=== PATIENT | female | born 1965 | race Caucasian/White ===

== ENCOUNTER → 2017-04-28 | Outpatient (CLI) | payer OTHER ==
--- NOTE | 2017-04-28 15:57 | REP ---
MRI RIGHT HIP: TECHNIQUE: Coronal T1, STIR through the pelvis, T2 fat sat, right hip all three planes, axial oblique proton density fat sat right hip. There is no bone marrow edema or occult fracture. A couple of tiny subchondral cysts are seen in the right acetabulum posteriorly and inferiorly. There appears to be a partial tear at the base of the superior labrum with diffuse fraying more peripherally of the superior labrum. There is a small tear of the posterior labrum. No paralabral cyst is seen. Surrounding soft tissue structures appear unremarkable. There is no joint effusion. Within the pelvis there are two or three fibroids in the uterus, the largest is anteriorly located 1.6 cm in diameter. One or two others are seen posteriorly and are smaller in size. IMPRESSION: There appears to be a partial tear at the base of the superior labrum with diffuse fraying of the more peripheral superior labrum. There appears to be a small tear of the posterior labrum. These findings could be confirmed with a MR arthrogram. Mild subchondral cystic change in the acetabulum. Uterine fibroids as discussed above. Signed by Drake Eddy MD 04/28/2017 05:26 P
== END ==
LOC: M PLARAD 14:15
PROVIDERS: ATTEND Orthopaedic Surgery
DX: M25.551 Pain in right hip (principal)

== ENCOUNTER → 2017-07-03 | Outpatient (REF) | payer OTHER | LOC: M LAB REF 17:42 | PROVIDERS: ATTEND Internal Medicine | DX: M54.2 Cervicalgia (principal) ==

== ENCOUNTER → 2018-02-18 | Outpatient (REF) | payer OTHER ==
[2018-02-18 12:37] LABS: TOTAL VOLUME, URINE 1775 ML
[2018-02-18 13:00] LABS: CALCIUM, 24 HOUR URINE 161.5 MG/24HR (42-353); CALCIUM, URINE 9.1 MG/DL; CREATININE 24 HOUR, URINE 1137.7 MG/24HR (600-1800); CREATININE, URINE 64.1 MG/DL; PHOSPHOROUS 24 HR URINE 766.8 MG/24HR (400-1300); SODIUM 24 HOUR URINE 197 MEQ/24HR (40-220); SODIUM, URINE 111 MEQ/L; URINE PHOSPHOROUS 43.2 MG/DL
== END ==
LOC: M LAB REF 11:56
DX: E83.39 Other disorders of phosphorus metabolism (principal); E89.0 Postprocedural hypothyroidism; E55.9 Vitamin D deficiency, unspecified
CPT/HCPCS: 82340

== ENCOUNTER 2018-07-06 10:04 | Outpatient (RCR) | payer OTHER | END 2018-08-05 | LOC: M ST 10:04 | DX: R49.0 Dysphonia (principal) | CPT/HCPCS: 92507 ==

== ENCOUNTER → 2018-08-01 | Outpatient (CLI) | payer OTHER | LOC: M ADAMS 13:35 | DX: M79.642 Pain in left hand (principal) | CPT/HCPCS: 73130 ==

== ENCOUNTER → 2019-02-08 | Outpatient (REF) | payer OTHER ==
[2019-02-11 00:07] LABS: Lyme Disease IgG/IgM Antibodie <0.91 ISR (0.00-0.90); Lyme Disease IgM Ab Quantitati <0.80 index (0.00-0.79)
== END ==
LOC: M LAB REF 17:02
PROVIDERS: ATTEND Internal Medicine
DX: M79.606 Pain in leg, unspecified (principal); M25.50 Pain in unspecified joint

== ENCOUNTER → 2019-02-28 | Outpatient (CLI) | payer OTHER ==
--- NOTE | 2019-02-28 11:34 | REP ---
Clinical: Pain. Technique: AP, lateral, bilateral oblique views of the left ankle. Findings: Diffuse soft tissue swelling is appreciated and small corticated old fracture fragments at the medial malleolus. Associated age-related arthritic changes are identified. There is no evidence for acute fracture or dislocation. Impression: Post traumatic and degenerative arthritic changes with overlying soft tissue swelling. No acute fracture dislocation. Electronically Signed by Lamberto Willingham MD 02/28/2019 11:25 A
== END ==
LOC: M ADAMS 11:01
PROVIDERS: ATTEND Physician Assistant
DX: M25.572 Pain in left ankle and joints of left foot (principal); M79.89 Other specified soft tissue disorders; M19.072 Primary osteoarthritis, left ankle and foot

== ENCOUNTER → 2019-03-23 | Outpatient (REF) | payer OTHER ==
[2019-03-23 14:14] LABS: CPK CREATINE PHOSPHOKINASE 166 U/L (26-192); RHEUMATOID FACTOR QUANT < 10.0 IU/ML (<15.0); VITAMIN B12 LEVEL 373 PG/ML
[2019-03-23 14:15] LABS: FOLATE 10.3 NG/ML
[2019-03-25 11:10] LABS: ALBUMIN 4.28 GM/DL (3.29-5.55); ALBUMIN % 61.1 % (55.8-66.1); ALPHA-1-GLOBULIN % 3.9 % (2.9-4.9); ALPHA-1-GLOBULINS 0.27 GM/DL (0.17-0.41); ALPHA-2-GLOBULINS 0.81 GM/DL (0.42-0.99); ALPHA-2-GLOBULINS % 11.5 % (7.1-11.8); BETA-1-GLOBULINS 0.39 GM/DL (0.28-0.60); BETA-1-GLOBULINS % 5.6 % (4.7-7.2); BETA-2-GLOBULINS 0.27 GM/DL (0.19-0.55); BETA-2-GLOBULINS % 3.9 % (3.2-6.5); GAMMA GLOBULINS 0.98 GM/DL (0.65-1.58)
== END ==
LOC: M LABNEURO 09:45
PROVIDERS: ATTEND Psychiatry & Neurology Neurology
DX: G62.9 Polyneuropathy, unspecified (principal); G72.9 Myopathy, unspecified; R53.1 Weakness

== ENCOUNTER → 2019-05-11 | Outpatient (CLI) | payer OTHER ==
--- NOTE | 2019-05-11 12:28 | REPMRS ---
Patient History The patient states she had a clinical breast exam in 05/2019. Patient is postmenopausal. Family history of pancreatic cancer at age 50 or over in father. [facility] lifetime risk for breast cancer is 8.1%. Digital Woman Screen Mammo: May 11, 2019 - Exam #: [id number] Bilateral CC and MLO view(s) were taken. Technologist: Allison Rosenberg, Technologist Prior study comparison: April 30, 2013, digital woman screen mammo performed at [facility]. January 02, 2009, bilateral bilat screen digital mammo performed at [facility]. FINDINGS: The breast tissue is heterogeneously dense. This may lower the sensitivity of mammography. There has been no change in the appearance of the mammogram from the prior studies. There is a moderate amount of residual fibroglandular tissue which is fairly symmetric. There is no interval development of dominant mass, areas of architectural distortion, or clustered microcalcification typical of malignancy. Assessment: BI-RADS/ACR category 1 mammogram. Negative Mammogram. Recommendation Routine screening mammogram in 1 year (for women over age 40). This mammogram was interpreted with the aid of an FDA-approved computer-aided dectection system. Electronically Signed By: Drake Eddy MD 05/11/19 [id number]
== END ==
LOC: M WHC 09:27
PROVIDERS: ATTEND Nurse Practitioner Family
DX: Z12.31 Encounter for screening mammogram for malignant neoplasm of breast (principal); Z78.0 Asymptomatic menopausal state; Z80.0 Family history of malignant neoplasm of digestive organs; Z12.4 Encounter for screening for malignant neoplasm of cervix
CPT/HCPCS: 77067; 82270; 87624; G0123; G0463

== ENCOUNTER → 2019-05-11 | Outpatient (REF) | payer OTHER ==
[2019-05-15 00:06] LABS: HPV HYBRID CAPTURE II Negative (Negative)
== END ==
LOC: M SFHCWAGY 10:16
PROVIDERS: ATTEND Nurse Practitioner Family
DX: Z12.4 Encounter for screening for malignant neoplasm of cervix (principal)

== ENCOUNTER → 2019-12-15 | Outpatient (CLI) | payer OTHER ==
--- NOTE | 2019-12-15 18:13 | REP ---
Right knee five views : There is no fracture or dislocation. Mineralization and joint spaces are normal. There are no calcifications or foreign bodies. Impression: Negative right knee . Electronically Signed by Drake Andrea MD 12/15/2019 06:05 P
== END ==
LOC: M ADAMS 16:46
PROVIDERS: ATTEND Physician Assistant
DX: M25.561 Pain in right knee (principal)

== ENCOUNTER → 2020-01-26 | Outpatient (REF) | payer OTHER | LOC: M LAB REF 11:57 | PROVIDERS: ATTEND Internal Medicine | DX: R20.2 Paresthesia of skin (principal) ==

== ENCOUNTER → 2020-10-19 | Outpatient (CLI) | payer OTHER ==
--- NOTE | 2020-10-20 05:01 | REP ---
INDICATION: PAIN IN RIGHT FOOT COMPARISON: None. TECHNIQUE: AP, lateral, bilateral oblique views right foot. FINDINGS: There is a nondisplaced fracture at the base of the 5th metatarsal bone. Mild/Moderate age-related degenerative changes through the midfoot include subchondral sclerosis, joint space narrowing, and subtle areas of cortical irregularity. IMPRESSION: Nondisplaced Spence fracture at the base of the 5th metatarsal bone.. <Electronically signed by Lamberto Willingham > 10/20/20 [id number]
== END ==
LOC: M ADAMS 10:14
PROVIDERS: ATTEND Physician Assistant
DX: S92.354A Nondisplaced fracture of fifth metatarsal bone, right foot, initial encounter for closed fracture (principal)

== ENCOUNTER → 2020-11-15 | Outpatient (CLI) | payer OTHER ==
--- NOTE | 2020-11-15 15:56 | REP ---
INDICATION: PAIN IN L THIGH. The patient has a cast and boot in the right lower leg and foot. Evaluate left femur and hip region. History of hypophosphatasia. COMPARISON: Comparison bone scan is from February 26, 2010.. TECHNIQUE/RADIOTRACER AND DOSE: 21.1 mCi of Technetium-99m MDP was injected and standard whole-body bone scanning is acquired. FINDINGS: There is uptake in bilateral kidneys and in the urinary bladder. Arthritic uptake is seen in the right knee. There are multifocal areas of increased uptake in the small joints of the right ankle and right midfoot as well as, to a lesser extent in the same distribution in the left mid foot and left ankle. There is no evidence to suggest skeletal metastatic disease or fracture. There are however several foci of abnormal soft tissue uptake noted. These are globular masslike foci of increased soft tissue uptake in the soft tissues of the proximal thighs bilaterally as well as in the anterior abdomen region bilaterally. These are in the mid abdomen and in the iliac fossa regions bilaterally. IMPRESSION: No evidence to suggest fracture or metastatic disease. Arthritic uptake pattern particularly in the small joints of the feet and ankles and right knee. The dominant abnormality however is multifocal abnormal soft tissue uptake in the anterior abdominal, bilateral iliac fossa, and bilateral proximal thigh regions. This is of uncertain significance but disordered calcium metabolism with abnormal mineral deposition in the soft tissues may play a role.. <Electronically signed by Nnamdi Schroeder > 11/15/20 [id number]
== END ==
LOC: M RAD 10:30
PROVIDERS: ATTEND Orthopaedic Surgery
DX: M79.652 Pain in left thigh (principal)
CPT/HCPCS: 78306; A9503

== ENCOUNTER → 2020-12-27 | Outpatient (CLI) | payer OTHER ==
--- NOTE | 2020-12-27 17:23 | REP ---
INDICATION: CHILDHOOD HYPOPLASPATIVA. COMPARISON: None. TECHNIQUE: Real-time sonographic evaluation of the kidneys is performed. FINDINGS: Renal cortical echogenicity pattern is normal bilaterally and contours are smooth. There is no evidence of hydronephrosis, cyst, mass, or calculus in either kidney. The right kidney measures 10.4 x 3.4 x 4.6 cm. Left renal dimensions are 11.1 x 5.1 x 5.3 cm. Urinary bladder is not well distended and not well evaluated. IMPRESSION: Negative renal ultrasound. <Electronically signed by Drake Eddy > 12/27/20 [id number]
[2020-12-27 19:11] LABS: ALBUMIN 3.9 GM/DL (3.2-5.2); ALT/SGPT 18 U/L (12-78); BILIRUBIN,TOTAL 0.3 MG/DL (0.2-1.0); BLOOD UREA NITROGEN 18 MG/DL (7-18); CALCIUM LEVEL 9.7 MG/DL (8.5-10.1); CARBON DIOXIDE LEVEL 30 MEQ/L (21-32); CHLORIDE LEVEL 103 MEQ/L (98-107); CREATININE FOR GFR 0.84 MG/DL (0.55-1.30); FREE T4 1.07 NG/DL (0.76-1.46); GLOMERULAR FILTRATION RATE > 60.0 (>51); GLUCOSE, FASTING 90 MG/DL (70-100); POTASSIUM SERUM 3.9 MEQ/L (3.5-5.1); PTH INTACT 69.1 PG/ML (18.5-88.0); SODIUM LEVEL 139 MEQ/L (136-145); TOTAL 25(OH) VITAMIN D 16.5 NG/ML (30.0-100.0); TOTAL PROTEIN 7.2 GM/DL (6.4-8.2)
== END ==
LOC: M RAD 16:37
PROVIDERS: ATTEND Internal Medicine Endocrinology, Diabetes & Metabolism
DX: E83.39 Other disorders of phosphorus metabolism (principal)

== ENCOUNTER → 2022-11-07 | Outpatient (REF) | payer OTHER | LOC: M PLALAB 10:32 | PROVIDERS: ATTEND Nurse Practitioner Family | DX: Z12.4 Encounter for screening for malignant neoplasm of cervix (principal) | CPT/HCPCS: 87624; G0123 ==

== ENCOUNTER → 2022-11-27 | Outpatient (CLI) | payer OTHER | LOC: M WHC 10:50 | DX: Z78.0 Asymptomatic menopausal state (principal) ==

== ENCOUNTER → 2023-04-18 | Outpatient (REF) | payer OTHER ==
[2023-04-18 14:33] LABS: C REACTIVE PROTEIN QUANTITATIV 27.1 MG/DL (<1.0)
[2023-04-18 14:34] LABS: PERCENT SATURATION 8.6 % (13.2-45.0)
[2023-04-18 14:36] LABS: FERRITIN 375.9 NG/ML (7.3-270.7)
== END ==
LOC: M LAB REF 12:59
PROVIDERS: ATTEND Internal Medicine
DX: I30.9 Acute pericarditis, unspecified (principal); D64.9 Anemia, unspecified; M79.7 Fibromyalgia

== ENCOUNTER → 2023-06-17 | Outpatient (CLI) | payer OTHER | LOC: M CARPUL 09:56 | PROVIDERS: ATTEND Internal Medicine Cardiovascular Disease | DX: I31.39 Other pericardial effusion (noninflammatory) (principal); I34.0 Nonrheumatic mitral (valve) insufficiency; I36.1 Nonrheumatic tricuspid (valve) insufficiency ==

== ENCOUNTER → 2023-06-25 | Outpatient (REF) | payer OTHER ==
[2023-06-25 16:47] LABS: APPEARANCE, URINE CLEAR (CLEAR); BACTERIA, URINE AUTO 1+ (NEGATIVE); BILIRUBIN, URINE AUTO NEGATIVE (NEGATIVE); BLOOD, URINE BLOOD 2+ (NEGATIVE); COLOR, URINE COLORLESS (YELLOW); GLUCOSE, URINE (UA) AUTO NEGATIVE (NEGATIVE); KETONE, URINE AUTO NEGATIVE (NEGATIVE); LEUKOCYTE ESTERASE, URINE AUTO 2+ (NEGATIVE); NITRITE, URINE AUTO NEGATIVE (NEGATIVE); PROTEIN, URINE AUTO NEGATIVE (NEGATIVE); RBC, URINE AUTO 1 /HPF (0-3); SPECIFIC GRAVITY URINE AUTO 1.002 (1.002-1.035); SQUAMOUS EPITHELIAL CELL UR AU 0 /HPF (0-6); UROBILINOGEN, URINE AUTO 0.2 mg/dL (0.0-2.0); WBC, URINE AUTO 11 /HPF (0-3)
== END ==
LOC: M LAB REF 16:07
PROVIDERS: ATTEND Physician Assistant Medical
DX: R31.9 Hematuria, unspecified (principal)

== ENCOUNTER → 2023-12-10 | Outpatient (REF) | payer OTHER | LOC: M LAB REF 11:56 | PROVIDERS: ATTEND Internal Medicine | DX: Z85.850 Personal history of malignant neoplasm of thyroid (principal); E89.0 Postprocedural hypothyroidism ==

== ENCOUNTER → 2023-12-25 | Outpatient (CLI) | payer OTHER | LOC: M WHC 11:58 | PROVIDERS: ATTEND Internal Medicine | DX: I89.0 Lymphedema, not elsewhere classified (principal) ==

== ENCOUNTER → 2024-01-26 | Outpatient (REF) | payer OTHER | LOC: M LAB REF 16:12 | PROVIDERS: ATTEND Internal Medicine | DX: E83.31 Familial hypophosphatemia (principal); M90.80 Osteopathy in diseases classified elsewhere, unspecified site ==

== ENCOUNTER → 2024-06-11 | Outpatient (REF) | payer OTHER ==
[2024-06-11 14:03] LABS: PERCENT SATURATION 30.3 % (13.2-45.0)
[2024-06-11 14:09] LABS: FERRITIN 92.7 NG/ML (7.3-270.7)
[2024-06-11 14:10] LABS: TOTAL T3 120.7 NG/DL (60.0-181.0)
== END ==
LOC: M LAB REF 12:39
PROVIDERS: ATTEND Internal Medicine
DX: D50.9 Iron deficiency anemia, unspecified (principal); E89.0 Postprocedural hypothyroidism

== ENCOUNTER → 2024-06-28 | Outpatient (CLI) | payer OTHER | LOC: M WHC 11:11 | PROVIDERS: ATTEND Internal Medicine | DX: R59.0 Localized enlarged lymph nodes (principal) ==

== ENCOUNTER → 2024-12-20 | Outpatient (REF) | payer OTHER ==
[2024-12-20 15:08] LABS: PERCENT SATURATION 24.8 % (13.2-45.0)
[2024-12-20 15:11] LABS: FERRITIN 78.5 NG/ML (7.3-270.7)
== END ==
LOC: M LAB REF 12:27
PROVIDERS: ATTEND Internal Medicine
DX: D50.9 Iron deficiency anemia, unspecified (principal)

== ENCOUNTER 2025-02-23 09:54 | Emergency (ER) | payer OTHER ==
[~2025-02-23] VITALS: Ht 172.7 cm; Wt 99.5 kg
[2025-02-23] MEDS ORDERED: LOSA50TA28 (10:05)
[2025-02-23] MEDS ORDERED: HYDR-643 (10:05)
[2025-02-23] MEDS ORDERED: EPIN0.3I11 (10:05)
[2025-02-23] MEDS ORDERED: [UNRECOGNIZED DRUG - CODE] (10:05)
[2025-02-23] MEDS ORDERED: COLC1CAP (10:05)
[2025-02-23] MEDS ORDERED: LEVO137T2 (10:05)
[2025-02-23 10:36] LABS: KETONE, URINE AUTO RFX NEGATIVE (NEGATIVE); LEUKOCYTE ESTERASE UR AUTO RFX NEGATIVE (NEGATIVE); NITRITE, URINE AUTO RFX NEGATIVE (NEGATIVE); RBC, URINE AUTO RFX 0 /HPF (0-3); SQUAM EPITHELIAL CELL UR AURFX 0 /HPF (0-6); WBC, URINE AUTO RFX 0 /HPF (0-3)
[2025-02-23 10:37] LABS: BASO # 0.1 10^3/uL (0.0-0.2); BASO % 1.3 % (0.0-1.0); EOS # 1.1 10^3/uL (0.0-0.5); EOS % 13.6 % (0.0-3.0); HEMATOCRIT 42.6 % (36.0-47.0); LYMPH # 2.6 10^3/uL (1.5-5.0); LYMPH % 31.3 % (24.0-44.0); MEAN CORPUSCULAR HEMOGLOBIN 29.5 pg (27.0-33.0); MEAN CORPUSCULAR HGB CONC 32.9 g/dl (32.0-36.5); MEAN CORPUSCULAR VOLUME 89.9 fl (80.0-96.0); MONO # 0.5 10^3/uL (0.0-0.8); MONO % 6.5 % (2.0-8.0); NEUTROPHILS # 3.8 10^3/uL (1.5-8.5); NEUTROPHILS % 46.9 % (36.0-66.0); PLATELET COUNT, AUTOMATED 239 10^3/uL (150-450); RED BLOOD COUNT 4.74 10^6/uL (4.00-5.40); WHITE BLOOD COUNT 8.2 10^3/uL (4.0-10.0)
[2025-02-23 11:05] VITALS: TEMP 96.4
[2025-02-23 11:24] LABS: BILIRUBIN,DIRECT 0.2 MG/DL (<0.4); BILIRUBIN,TOTAL 0.6 MG/DL (0.3-1.2); CALCIUM LEVEL 10.1 MG/DL (8.5-10.1); CREATININE FOR GFR 0.8 MG/DL (0.55-1.30); GLOMERULAR FILTRATION RATE 85.4 (>51); POTASSIUM SERUM 3.9 MMOL/L (3.5-5.1); TOTAL PROTEIN 7.3 G/DL (5.7-8.2)
[2025-02-23] MEDS ORDERED: ISOVUE-370 76% 100ML VIAL As Ordered ONE (12:57)
[2025-02-23 13:00] VITALS: BP 179/86
[2025-02-23] MEDS: LOSARTAN 25 MG TAB PO ONE (13:00)
[2025-02-23 13:54] LABS: CK-MB VALUE MASS 1.1 NG/ML (<3.6)
[2025-02-23 14:05] LABS: ERYTHROCYTE SEDIMENTATION RATE 19 mm/hr (0-30)
[2025-02-23 14:11] LABS: MB/CK RELATIVE INDEX 0.8 (< OR =4)
[2025-02-23 14:12] LABS: C REACTIVE PROTEIN QUANTITATIV 0.71 MG/DL (<1.0)
[2025-02-23 14:33] LABS: CK-MB VALUE MASS 1.1 NG/ML (<3.6)
[2025-02-23 14:43] LABS: MB/CK RELATIVE INDEX 0.88 (< OR =4)
[2025-02-23 18:31] VITALS: BP 171/92; O2SAT 97
== END 2025-02-23 19:07 | disposition left against medical advice (07) ==
LOC: M ED 09:54
DX: R51.9 Headache, unspecified (principal); I10 Essential (primary) hypertension; R00.1 Bradycardia, unspecified; E03.9 Hypothyroidism, unspecified; F12.10 Cannabis abuse, uncomplicated; F10.10 Alcohol abuse, uncomplicated; Z88.8 Allergy status to other drugs, medicaments and biological substances; Z79.899 Other long term (current) drug therapy; Z53.9 Procedure and treatment not carried out, unspecified reason
CPT/HCPCS: 70450; 70496; 70498; 71045; 80048; 80076; 81001; 82550; 82553; 84484; 85025; 85652; 86140; 93005; 93306; 99285; Q9967

== ENCOUNTER → 2025-04-26 | Outpatient (CLI) | payer OTHER ==
[~2025-04-26] MED LIST: COLC1CAP; EPIN0.3I11; HYDR-643; LEVO137T2; LOSA50TA28; [UNRECOGNIZED DRUG - CODE]
== END ==
LOC: M RAD 15:01
PROVIDERS: ATTEND Internal Medicine
DX: M25.571 Pain in right ankle and joints of right foot (principal)

== ENCOUNTER → 2025-08-17 | Outpatient (CLI) | payer OTHER | LOC: M WUC 11:41 | PROVIDERS: ATTEND Nurse Practitioner Adult Health | DX: M25.562 Pain in left knee (principal) ==